=== PATIENT | female | born 1990 | race African-American/Black ===

== ENCOUNTER 2020-11-09 15:27 | Outpatient (REF) | payer OTHER, SELFPAY | END 2020-11-09 15:28 | disposition home or self-care (01) | LOC: HO.LAB 15:27 | PROVIDERS: Visit Provider Internal Medicine | DX: Z20.822 Contact with and (suspected) exposure to COVID-19 (principal) | CPT/HCPCS: 36415; C9803; U0003; U0005 ==

== ENCOUNTER 2020-12-04 13:53 | Outpatient (REF) | payer OTHER, SELFPAY | END 2020-12-04 13:54 | disposition home or self-care (01) | LOC: HO.LAB 13:53 | PROVIDERS: Visit Provider Internal Medicine | DX: Z20.822 Contact with and (suspected) exposure to COVID-19 (principal) | CPT/HCPCS: 36415; C9803; U0003; U0005 ==

== ENCOUNTER 2020-12-18 12:36 | Outpatient (REF) | payer OTHER, SELFPAY | END 2020-12-18 12:37 | disposition home or self-care (01) | LOC: HO.LAB 12:36 | PROVIDERS: Visit Provider Internal Medicine | DX: Z20.822 Contact with and (suspected) exposure to COVID-19 (principal) | CPT/HCPCS: 36415; C9803; U0003; U0005 ==

== ENCOUNTER 2021-01-08 14:46 | Outpatient (REF) | payer OTHER, SELFPAY ==
[2021-01-08 17:43] LABS: SARS COV2 PCR INHOUSE NEGATIVE (Negative)
== END 2021-01-08 14:47 | disposition home or self-care (01) ==
LOC: HO.LAB 14:46
PROVIDERS: Visit Provider Internal Medicine
DX: Z20.822 Contact with and (suspected) exposure to COVID-19 (principal)
CPT/HCPCS: C9803; U0003